=== PATIENT | female | born 1940 | race Caucasian/White ===

== ENCOUNTER 2017-03-07 09:16 | Inpatient (IN) | payer OTHER ==
[2017-03-07] VITALS (8 sets, daily range): BP systolic 107–133; BP diastolic 54–72
[~2017-03-07] VITALS: Ht 157.5 cm; Wt 65.9 kg
[~2017-03-07 09:16] MED LIST: ALEVE220 MG PO; CALCIUM 600 +1 EAC3 PO; CENTRUM SILVER1 EAC4 PO; COUMADIN4 MG PO; FIBER THERAPY0.52 GM PO; HYDROCODON-ACE1 EAC7 PO; IRON325 MG PO; MULTIVITAMIN1 EAC2 PO; NEXIUM20 MG PO; PAXIL10 MG PO; PRAVASTATIN SOD40 MG PO; REFRESH OPTIVE10 ML BOTH EYES; SALINE NASAL SP45 ML BOTH NARES; SIMVASTATIN10 M1 G-TUBE; STOOL SOFTENER100 MG PO; TYLENOL EXTRA500 MG PO; VITAMIN D1000 UNIT PO; ZOCOR40 MG PO
[2017-03-07 10:11] LABS: EOSINOPHIL (%) 0.2 % (0-5); IMMATURE GRANULOCYTE (%) 0.7 % (0.0-0.7); IMMATURE GRANULOCYTE COUNT 0.1 K/uL; INSTRUMENT ABS NEUTROPHIL CT 8.2 K/uL; LYMPHOCYTE COUNT 0.5 K/uL (1.0-2.8); MCH 27.5 PG (29.0-34.0); MCHC 29.4 G/DL (30.0-36.0); MCV 93.4 FL (83-99); MEAN PLAT.VOLUME 10.9 uM^3 (9.5-12.4); MONOCYTE (%) 12.7 % (3-12); MONOCYTE COUNT 1.3 K/uL (0-0.8); NEUTROPHIL (%) 81.5 % (45-76); NEUTROPHIL COUNT 8.2 K/uL (1.8-6.4); PLATELET COUNT 150 K/uL (156-360); RBC DIS.WIDTH-CV 21.9 % (11.8-14.6); RBC DIS.WIDTH-SD 72.6 % (39-53); RED BLOOD COUNT 1.82 M/uL (3.80-5.20); WHITE BLOOD COUNT 10.1 K/uL (4.1-10.2)
[2017-03-07 10:15] LABS: CHLORIDE 100 mEq/L (99-109); POTASSIUM 4.7 mEq/L (3.7-5.4); SODIUM 136 mEq/L (136-147)
[2017-03-07 10:17] LABS: GLUCOSE 114 mg/dL (70-99)
[2017-03-07 10:18] LABS: ANION GAP 10 MEQ/L (2-14)
[2017-03-07 10:19] LABS: TOTAL BILIRUBIN 0.9 mg/dL (0.0-1.0)
[2017-03-07 10:21] LABS: ALKALINE PHOSPHATASE 100 IU/L (3-129)
[2017-03-07 10:22] LABS: UREA NITROGEN (BUN) 35 mg/dL (9-23)
[2017-03-07 10:26] LABS: GFR ESTIMATE (CALCULATED) 26 mL/min/
[2017-03-07 11:30] LABS: INTACT PARATHYROID HORMONE 7 pg/mL (10-69)
[2017-03-07 12:12] LABS: IMM.RETIC FRACTION 33.4 % (3-19); RETIC HGB EQUIVALENT 26.6 (28-36); RETICULOCYTE COUNT 6.3 % (0.5-1.8)
[2017-03-07] MEDS ORDERED: PROMETHAZINE12.5 M1 PO (12:15)
[2017-03-07] MEDS ORDERED: PREMARIN VAGI42.5 GM TP (12:16)
[2017-03-07] MEDS ORDERED: MELOXICAM7.5 MG PO (12:17)
[2017-03-07] MEDS ORDERED: CLONAZEPAM0.5 MG PO (12:17)
[2017-03-07] MEDS ORDERED: TRAMADOL HCL50 MG PO (12:17)
[2017-03-07] MEDS ORDERED: ADVIL200 MG PO (12:18)
[2017-03-07 13:05] LABS: GLOBULINS 2.5 G/DL (2.3-3.5)
[2017-03-07 20:11] LABS: IMMUNOGLOBULIN A 76 MG/DL (40-350); IMMUNOGLOBULIN G 792 MG/DL (650-1600); IMMUNOGLOBULIN M 51 MG/DL (50-300)
[2017-03-08] VITALS (16 sets, daily range): BP systolic 116–139; BP diastolic 54–71
[2017-03-08 03:34] LABS: ADD MIUA? YES; BILIRUBIN NEGATIVE; BLOOD NEGATIVE; COLOR STRAW ((YELLOW)); GLUCOSE (STRIP) NEGATIVE; KETONES NEGATIVE; LEUKOCYTES MODERATE; NITRITE NEGATIVE; PROTEIN (STRIP) NEGATIVE; SPECIFIC GRAVITY 1.006 (1.000-1.030); UROBILINOGEN 0.2 MG/DL (0.2-1.0)
[2017-03-08 03:37] LABS: BACTERIA RARE /HPF; EPITHELIAL CELLS RARE /HPF; MUCUS NONE SEEN /LPF; RED BLOOD CELLS 0-5 /HPF (0-5); UCUL ADDED? YES
[2017-03-08 07:59] LABS: EOSINOPHIL (%) 0 % (0-5); HEMATOCRIT 29.8 % (36.0-46.0); IMMATURE GRANULOCYTE (%) 0.9 % (0.0-0.7); IMMATURE GRANULOCYTE COUNT 0.1 K/uL; INSTRUMENT ABS NEUTROPHIL CT 7.9 K/uL; LYMPHOCYTE COUNT 0.9 K/uL (1.0-2.8); MCH 27.6 PG (29.0-34.0); MCHC 32.9 G/DL (30.0-36.0); MEAN PLAT.VOLUME 10.3 uM^3 (9.5-12.4); MONOCYTE (%) 5.3 % (3-12); MONOCYTE COUNT 0.5 K/uL (0-0.8); NEUTROPHIL (%) 84.2 % (45-76); NEUTROPHIL COUNT 7.9 K/uL (1.8-6.4); PLATELET COUNT 124 K/uL (156-360); RBC DIS.WIDTH-CV 19.7 % (11.8-14.6); RBC DIS.WIDTH-SD 55.8 % (39-53); WHITE BLOOD COUNT 9.4 K/uL (4.1-10.2)
[2017-03-08 08:00] LABS: MCV 83.9 FL (83-99); RED BLOOD COUNT 3.55 M/uL (3.80-5.20)
[2017-03-08 08:09] LABS: INTER. NORMALIZED RATIO 1.2; PROTHROMBIN TIME 13.5 SEC (10.2-12.9)
[2017-03-08 08:11] LABS: PTT 20.4 SEC (25-37)
[2017-03-08 08:26] LABS: ANION GAP 7 MEQ/L (2-14); CHLORIDE 99 MEQ/L (99-109); GFR ESTIMATE (CALCULATED) 29 mL/min/; GLUCOSE 149 mg/dL (70-99); POTASSIUM 4.4 MEQ/L (3.7-5.4); SAMPLE HEMOLYSIS CHECK 0; SAMPLE ICTERIC CHECK 0; SAMPLE LIPEMIA CHECK 0; SODIUM 139 MEQ/L (136-147); UREA NITROGEN (BUN) 35 mg/dL (9-23)
[2017-03-08 09:32] LABS: ANISOCYTOSIS 2+; HYPOCHROMASIA 1+; MACROCYTES 1+; PLAT.SUFFICIENCY DECREASED; POLYCHROMASIA 1+; STOMATOCYTES 1+; TARGET CELLS 1+
[2017-03-08 10:10] LABS: FIBRINOGEN 420 mg/dL (150-450)
[2017-03-08 13:48] LABS: ABS NEUTROPHIL COUNT 8.9; ATYPICAL LYMPHOCYTE 1.8 %; BAND NEUTROPHILS 3.5 % (0-8.0); EOSINOPHIL ABS CT 0; SEG.NEUTROPHILS 91.2 % (46.0-76.0)
[2017-03-08 15:13] LABS: URINE TOTAL PROTEIN 10 MG/DL (0-10)
[2017-03-09 03:54] VITALS: BP 129/65
[2017-03-09 06:08] LABS: EOSINOPHIL (%) 0 % (0-5); HEMATOCRIT 28.7 % (36.0-46.0); IMMATURE GRANULOCYTE (%) 0.5 % (0.0-0.7); IMMATURE GRANULOCYTE COUNT 0.1 K/uL; INSTRUMENT ABS NEUTROPHIL CT 11.8 K/uL; LYMPHOCYTE COUNT 0.8 K/uL (1.0-2.8); MCH 26.6 PG (29.0-34.0); MCHC 31.4 G/DL (30.0-36.0); MCV 84.9 FL (83-99); MEAN PLAT.VOLUME 10.8 uM^3 (9.5-12.4); MONOCYTE (%) 4.2 % (3-12); MONOCYTE COUNT 0.6 K/uL (0-0.8); NEUTROPHIL (%) 89.4 % (45-76); NEUTROPHIL COUNT 11.8 K/uL (1.8-6.4); PLATELET COUNT 130 K/uL (156-360); RBC DIS.WIDTH-CV 20.6 % (11.8-14.6); RBC DIS.WIDTH-SD 59.2 % (39-53); RED BLOOD COUNT 3.38 M/uL (3.80-5.20); WHITE BLOOD COUNT 13.2 K/uL (4.1-10.2)
[2017-03-09 06:53] LABS: ANION GAP 8 MEQ/L (2-14); CHLORIDE 103 MEQ/L (99-109); GFR ESTIMATE (CALCULATED) 36 mL/min/; GLUCOSE 131 mg/dL (70-99); MAGNESIUM 1.8 mg/dl (1.3-2.7); POTASSIUM 3.8 MEQ/L (3.7-5.4); SAMPLE HEMOLYSIS CHECK 0; SAMPLE ICTERIC CHECK 0; SAMPLE LIPEMIA CHECK 0; SODIUM 141 MEQ/L (136-147); UREA NITROGEN (BUN) 46 mg/dL (9-23)
[2017-03-09 07:57] VITALS: BP 142/72
[2017-03-09 12:14] VITALS: BP 165/72
[2017-03-09 16:02] VITALS: BP 152/71
[2017-03-09 20:00] VITALS: BP 128/65
[2017-03-09 23:54] VITALS: BP 130/64
[2017-03-10 04:06] VITALS: BP 133/68
[2017-03-10 07:31] VITALS: BP 131/73
[2017-03-10 08:37] LABS: EOSINOPHIL (%) 0 % (0-5); HEMATOCRIT 29.6 % (36.0-46.0); IMMATURE GRANULOCYTE (%) 0.5 % (0.0-0.7); IMMATURE GRANULOCYTE COUNT 0.1 K/uL; INSTRUMENT ABS NEUTROPHIL CT 10.6 K/uL; LYMPHOCYTE COUNT 0.6 K/uL (1.0-2.8); MCH 27.1 PG (29.0-34.0); MCHC 31.1 G/DL (30.0-36.0); MCV 87.1 FL (83-99); MONOCYTE COUNT 0.5 K/uL (0-0.8); NEUTROPHIL (%) 90.7 % (45-76); NEUTROPHIL COUNT 10.6 K/uL (1.8-6.4); PLATELET COUNT 145 K/uL (156-360); RBC DIS.WIDTH-CV 20.9 % (11.8-14.6); RBC DIS.WIDTH-SD 61.9 % (39-53); WHITE BLOOD COUNT 11.7 K/uL (4.1-10.2)
[2017-03-10 08:48] LABS: ANION GAP 8 MEQ/L (2-14); CHLORIDE 106 MEQ/L (99-109); GFR ESTIMATE (CALCULATED) 39 mL/min/; GLUCOSE 115 mg/dL (70-99); SAMPLE HEMOLYSIS CHECK 0; SAMPLE ICTERIC CHECK 0; SAMPLE LIPEMIA CHECK 0; SODIUM 142 MEQ/L (136-147); UREA NITROGEN (BUN) 44 mg/dL (9-23)
[2017-03-10 12:18] VITALS: BP 141/71
[2017-03-10 15:58] VITALS: BP 142/65
[2017-03-10 19:56] VITALS: BP 139/67
[2017-03-11] VITALS: BP 115/62
[2017-03-11 04:00] VITALS: BP 132/70
[2017-03-11 07:28] LABS: EOSINOPHIL (%) 0 % (0-5); HEMATOCRIT 28.8 % (36.0-46.0); IMMATURE GRANULOCYTE (%) 0.6 % (0.0-0.7); IMMATURE GRANULOCYTE COUNT 0.1 K/uL; INSTRUMENT ABS NEUTROPHIL CT 9.5 K/uL; LYMPHOCYTE COUNT 0.6 K/uL (1.0-2.8); MCH 27.9 PG (29.0-34.0); MCHC 31.6 G/DL (30.0-36.0); MCV 88.3 FL (83-99); MEAN PLAT.VOLUME 10.7 uM^3 (9.5-12.4); MONOCYTE (%) 6.1 % (3-12); MONOCYTE COUNT 0.7 K/uL (0-0.8); NEUTROPHIL (%) 87.8 % (45-76); NEUTROPHIL COUNT 9.5 K/uL (1.8-6.4); PLATELET COUNT 127 K/uL (156-360); RBC DIS.WIDTH-CV 20.9 % (11.8-14.6); RBC DIS.WIDTH-SD 62.9 % (39-53); RED BLOOD COUNT 3.26 M/uL (3.80-5.20); WHITE BLOOD COUNT 10.8 K/uL (4.1-10.2)
[2017-03-11 07:32] VITALS: BP 133/63
[2017-03-11 08:06] LABS: ANION GAP 6 MEQ/L (2-14); CHLORIDE 108 MEQ/L (99-109); GFR ESTIMATE (CALCULATED) 51 mL/min/; GLUCOSE 105 mg/dL (70-99); POTASSIUM 3.9 MEQ/L (3.7-5.4); SAMPLE HEMOLYSIS CHECK 0; SAMPLE ICTERIC CHECK 0; SAMPLE LIPEMIA CHECK 0; SODIUM 142 MEQ/L (136-147); UREA NITROGEN (BUN) 39 mg/dL (9-23)
[2017-03-11] MEDS ORDERED: POLYETHYLENE GL17 GM PO (10:43)
[2017-03-11] MEDS ORDERED: DEXAMETHASONE4 MG PO (10:43)
[2017-03-11 13:22] LABS: ALBUMIN PERCENT 44.9 % (49.3-67.1); ALPHA-1 GLOBULIN 0.61 G/DL (0.15-0.40); ALPHA-1 PERCENT 12.4 % (2.1-5.5); ALPHA-2 GLOBULIN 0.86 G/DL (0.45-0.85); ALPHA-2 PERCENT 17.5 % (6.2-11.6); BETA PERCENT 11.7 % (8.9-15.8); GAMMA PERCENT 13.5 % (8.6-18.6)
== END 2017-03-11 13:25 | disposition home health service (06) | DRG 812 ==
LOC: EME 09:16 → 5SOUTH 11:28 → EDOF 11:28 → ENRESERV 11:34 → 5SOUTH 18:09
PROVIDERS: Internal Medicine; Internal Medicine Hematology & Oncology; Physician Assistant
PROC: 30233N1 Transfusion of Nonautologous Red Blood Cells into Peripheral Vein, Percutaneous Approach (ICD-10-PCS; principal; 2017-03-07)
DX: D62 Acute posthemorrhagic anemia (principal); N17.9 Acute kidney failure, unspecified; C85.90 Non-Hodgkin lymphoma, unspecified, unspecified site; M84.454G Pathological fracture, pelvis, subsequent encounter for fracture with delayed healing; M84.48XG Pathological fracture, other site, subsequent encounter for fracture with delayed healing; D69.6 Thrombocytopenia, unspecified; E78.5 Hyperlipidemia, unspecified; E83.52 Hypercalcemia; E86.0 Dehydration; R16.1 Splenomegaly, not elsewhere classified; I10 Essential (primary) hypertension; K21.9 Gastro-esophageal reflux disease without esophagitis; K59.00 Constipation, unspecified; F41.9 Anxiety disorder, unspecified; R63.0 Anorexia; R63.4 Abnormal weight loss; I95.9 Hypotension, unspecified; Z85.048 Personal history of other malignant neoplasm of rectum, rectosigmoid junction, and anus; Z87.891 Personal history of nicotine dependence; Z85.828 Personal history of other malignant neoplasm of skin; Z88.2 Allergy status to sulfonamides; Z68.26 Body mass index [BMI] 26.0-26.9, adult
CPT/HCPCS: 36415; 70450; 73130; 74176; 80048; 80053; 81003; 82232; 82272; 82310; 82607; 82784; 83615; 83718; 83735; 83883 90; 83970; 84165; 84166; 84439; 84443; 85007; 85025; 85025 91; 85027; 85060; 85378; 85379; 85384; 85610; 85651; 85730; 86140; 86334; 86335; 86850; 86870; 86880; 86900; 86901; 86905; 86920; 87086; 94799; 97530 GP; 99281; 99285; C9113; J0630; J1100; J1940; J7030; J7120; P9016

== ENCOUNTER → 2017-03-27 | Outpatient (CLI) | payer OTHER ==
[~2017-03-27] MED LIST changes: +ADVIL200 MG PO; +CLONAZEPAM0.5 MG PO; +DEXAMETHASONE4 MG PO; +MELOXICAM7.5 MG PO; +PAIN & FEVER500 MG PO; +PAROXETINE HCL20 MG PO; +POLYETHYLENE GL17 GM PO; +PREMARIN VAGI42.5 GM TP; +PROMETHAZINE12.5 M1 PO; +TRAMADOL HCL50 MG PO
[2017-03-29 14:44] LABS: Flow Clinical Information NOT PROVIDED (()); Flow Number of Markers 22 (()); Flow Spec Viability 71 % (())
== END | disposition home or self-care (01) ==
LOC: EDSTATUS 14:00 → RAD 14:00
PROVIDERS: Internal Medicine Hematology & Oncology
PROC: 07B64ZX Excision of Left Axillary Lymphatic, Percutaneous Endoscopic Approach, Diagnostic (ICD-10-PCS; principal; 2017-03-27)
DX: C83.34 Diffuse large B-cell lymphoma, lymph nodes of axilla and upper limb (principal)
CPT/HCPCS: 76942; 88305

== ENCOUNTER 2017-04-10 08:01 | Day surgery (SDC) | payer OTHER ==
[~2017-04-10] VITALS: Ht 158.8 cm; Wt 64.0 kg
== END 2017-04-10 10:12 | disposition home or self-care (01) ==
LOC: CATH 08:01
DX: Z45.2 Encounter for adjustment and management of vascular access device (principal); C85.90 Non-Hodgkin lymphoma, unspecified, unspecified site; I87.8 Other specified disorders of veins
CPT/HCPCS: C1769; C1788; C1894; J0690; J1644; J2250; J3010; S0020

== ENCOUNTER 2017-04-29 08:54 | Inpatient (IN) | payer OTHER ==
[~2017-04-29] VITALS: Ht 157.5 cm; Wt 66.3 kg
[2017-04-29 12:15] VITALS: BP 147/71
[2017-04-29 12:43] LABS: BASOPHIL (%) 0 % (0-1); EOSINOPHIL (%) 0.1 % (0-5); HEMATOCRIT 28.8 % (36.0-46.0); IMMATURE GRANULOCYTE (%) 1.1 % (0.0-0.7); LYMPHOCYTE (%) 9.1 % (15-42); LYMPHOCYTE COUNT 0.9 K/uL (1.0-2.8); MCH 29.7 PG (29.0-34.0); MCHC 31.3 G/DL (30.0-36.0); MONOCYTE (%) 6.6 % (3-12); MONOCYTE COUNT 0.7 K/uL (0-0.8); NEUTROPHIL (%) 83.1 % (45-76); NEUTROPHIL COUNT 8.6 K/uL (1.8-6.4); RBC DIS.WIDTH-CV 18.9 % (11.8-14.6); RBC DIS.WIDTH-SD 65.3 % (39-53); RED BLOOD COUNT 3.03 M/uL (3.80-5.20); WHITE BLOOD COUNT 10.4 K/uL (4.1-10.2)
[2017-04-29 12:51] LABS: PLATELET COUNT 211 K/uL (156-360)
[2017-04-29 13:18] LABS: CHLORIDE 106 MEQ/L (99-109); POTASSIUM 4.3 MEQ/L (3.7-5.4); SODIUM 143 MEQ/L (136-147)
[2017-04-29 13:24] LABS: CREATININE 1.1 MG/DL (0.6-1.3); GFR ESTIMATE (CALCULATED) 51 mL/min/; GLUCOSE 89 mg/dL (70-99); UREA NITROGEN (BUN) 28 mg/dL (9-23)
[2017-04-29 21:13] VITALS: BP 135/64
[2017-04-30] VITALS (12 sets, daily range): BP systolic 116–147; BP diastolic 55–75
[2017-04-30 06:58] LABS: BASOPHIL (%) 0 % (0-1); EOSINOPHIL (%) 0 % (0-5); HEMATOCRIT 25.6 % (36.0-46.0); HEMOGLOBIN 7.7 G/DL (11.9-15.5); IMMATURE GRANULOCYTE (%) 0.7 % (0.0-0.7); LYMPHOCYTE (%) 13.5 % (15-42); MCH 28.4 PG (29.0-34.0); MCHC 30.1 G/DL (30.0-36.0); MCV 94.5 FL (83-99); MONOCYTE (%) 1.5 % (3-12); MONOCYTE COUNT 0.1 K/uL (0-0.8); NEUTROPHIL (%) 84.3 % (45-76); NEUTROPHIL COUNT 6.2 K/uL (1.8-6.4); PLATELET COUNT 175 K/uL (156-360); RBC DIS.WIDTH-CV 18.6 % (11.8-14.6); RBC DIS.WIDTH-SD 64.6 % (39-53); RED BLOOD COUNT 2.71 M/uL (3.80-5.20); WHITE BLOOD COUNT 7.3 K/uL (4.1-10.2)
[2017-04-30 07:24] LABS: CHLORIDE 107 MEQ/L (99-109); CREATININE 1.1 MG/DL (0.6-1.3); GFR ESTIMATE (CALCULATED) 51 mL/min/; GLUCOSE 115 mg/dL (70-99); POTASSIUM 5.2 MEQ/L (3.7-5.4); SODIUM 143 MEQ/L (136-147); UREA NITROGEN (BUN) 27 mg/dL (9-23)
[2017-05-01 06:45] VITALS: BP 140/72
[2017-05-01 06:49] LABS: BASOPHIL (%) 0.1 % (0-1); EOSINOPHIL (%) 0 % (0-5); HEMATOCRIT 32.5 % (36.0-46.0); IMMATURE GRANULOCYTE (%) 0.7 % (0.0-0.7); LYMPHOCYTE (%) 8.4 % (15-42); LYMPHOCYTE COUNT 0.8 K/uL (1.0-2.8); MCH 29.3 PG (29.0-34.0); MCHC 32.6 G/DL (30.0-36.0); MONOCYTE (%) 1.3 % (3-12); MONOCYTE COUNT 0.1 K/uL (0-0.8); NEUTROPHIL (%) 89.5 % (45-76); NEUTROPHIL COUNT 8.5 K/uL (1.8-6.4); PLATELET COUNT 167 K/uL (156-360); RBC DIS.WIDTH-CV 18.6 % (11.8-14.6); RBC DIS.WIDTH-SD 60.8 % (39-53); WHITE BLOOD COUNT 9.4 K/uL (4.1-10.2)
[2017-05-01 06:53] LABS: HEMOGLOBIN 10.6 G/DL (11.9-15.5); MCV 89.8 FL (83-99); RED BLOOD COUNT 3.62 M/uL (3.80-5.20)
[2017-05-01 07:21] LABS: CHLORIDE 106 MEQ/L (99-109); CREATININE 1.1 MG/DL (0.6-1.3); GFR ESTIMATE (CALCULATED) 51 mL/min/; GLUCOSE 116 mg/dL (70-99); SODIUM 142 MEQ/L (136-147); UREA NITROGEN (BUN) 30 mg/dL (9-23)
[2017-05-01 07:26] LABS: POTASSIUM 3.5 MEQ/L (3.7-5.4)
[2017-05-01 11:24] VITALS: BP 146/89
[2017-05-01 15:10] VITALS: BP 159/80
[2017-05-01 23:10] VITALS: BP 130/87
[2017-05-02 06:05] VITALS: BP 130/76
[2017-05-02 06:50] LABS: BASOPHIL (%) 0 % (0-1); EOSINOPHIL (%) 0 % (0-5); HEMATOCRIT 34.7 % (36.0-46.0); HEMOGLOBIN 11.3 G/DL (11.9-15.5); IMMATURE GRANULOCYTE (%) 0.7 % (0.0-0.7); LYMPHOCYTE (%) 6.2 % (15-42); LYMPHOCYTE COUNT 0.6 K/uL (1.0-2.8); MCH 29.6 PG (29.0-34.0); MCHC 32.6 G/DL (30.0-36.0); MCV 90.8 FL (83-99); MONOCYTE (%) 0.5 % (3-12); NEUTROPHIL (%) 92.6 % (45-76); NEUTROPHIL COUNT 8.2 K/uL (1.8-6.4); PLATELET COUNT 174 K/uL (156-360); RBC DIS.WIDTH-CV 18.3 % (11.8-14.6); RBC DIS.WIDTH-SD 60.2 % (39-53); RED BLOOD COUNT 3.82 M/uL (3.80-5.20); WHITE BLOOD COUNT 8.9 K/uL (4.1-10.2)
[2017-05-02 07:03] VITALS: BP 127/67
[2017-05-02 07:13] LABS: CHLORIDE 106 MEQ/L (99-109); CREATININE 1.1 MG/DL (0.6-1.3); GFR ESTIMATE (CALCULATED) 51 mL/min/; GLUCOSE 113 mg/dL (70-99); POTASSIUM 3.4 MEQ/L (3.7-5.4); SODIUM 140 MEQ/L (136-147); UREA NITROGEN (BUN) 29 mg/dL (9-23)
[2017-05-02 11:12] VITALS: BP 145/89
== END 2017-05-02 13:40 | disposition home or self-care (01) | DRG 847 ==
LOC: 5EAST 08:54 → ENRESERV 08:55 → 5EAST 09:27 → ENRESERV 12:16 → 5EAST 05-02 13:40
PROVIDERS: Internal Medicine Hematology & Oncology
PROC: 3E04305 Introduction of Other Antineoplastic into Central Vein, Percutaneous Approach (ICD-10-PCS; principal; 2017-04-29)
PROC: 30233N1 Transfusion of Nonautologous Red Blood Cells into Peripheral Vein, Percutaneous Approach (ICD-10-PCS; 2017-04-30)
DX: Z51.11 Encounter for antineoplastic chemotherapy (principal); C83.34 Diffuse large B-cell lymphoma, lymph nodes of axilla and upper limb; D63.0 Anemia in neoplastic disease; D64.81 Anemia due to antineoplastic chemotherapy; T45.1X5A Adverse effect of antineoplastic and immunosuppressive drugs, initial encounter; R41.82 Altered mental status, unspecified; E83.52 Hypercalcemia; Z85.048 Personal history of other malignant neoplasm of rectum, rectosigmoid junction, and anus
CPT/HCPCS: 80048; 85025; 86850; 86900; 86901; 86920; J1940; J7030; J7040; J7050; J7512; J8540; J9045; J9181; J9208; J9209; P9016; Q0166

== ENCOUNTER 2017-05-26 22:06 | Inpatient (IN) | payer OTHER ==
[2017-05-27 13:45] VITALS: BP 145/64
[2017-05-27 13:56] LABS: HEMATOCRIT 31.4 % (36.0-46.0); HEMOGLOBIN 9.8 G/DL (11.9-15.5); MCH 29.5 PG (29.0-34.0); MCHC 31.2 G/DL (30.0-36.0); MCV 94.6 FL (83-99); RBC DIS.WIDTH-CV 20.7 % (11.8-14.6); RBC DIS.WIDTH-SD 68.7 % (39-53); RED BLOOD COUNT 3.32 M/uL (3.80-5.20); WHITE BLOOD COUNT 19.4 K/uL (4.1-10.2)
[2017-05-27 14:02] LABS: BASOPHIL (%) 0.2 % (0-1); EOSINOPHIL (%) 0 % (0-5); IMMATURE GRANULOCYTE (%) 1.7 % (0.0-0.7); LYMPHOCYTE (%) 8.8 % (15-42); LYMPHOCYTE COUNT 1.7 K/uL (1.0-2.8); MONOCYTE (%) 1.3 % (3-12); MONOCYTE COUNT 0.3 K/uL (0-0.8); NEUTROPHIL COUNT 17.1 K/uL (1.8-6.4)
[2017-05-27 14:11] LABS: PLATELET COUNT 329 K/uL (156-360)
[2017-05-27 14:19] LABS: CHLORIDE 106 MEQ/L (99-109); CREATININE 1.1 MG/DL (0.6-1.3); GFR ESTIMATE (CALCULATED) 51 mL/min/; GLUCOSE 136 mg/dL (70-99); SODIUM 141 MEQ/L (136-147); UREA NITROGEN (BUN) 24 mg/dL (9-23)
[2017-05-27 16:18] VITALS: BP 129/60
[2017-05-27] MEDS ORDERED: PAXIL20 MG PO (17:14)
[2017-05-27] MEDS ORDERED: NEXIUM20 MG PO (17:16)
[2017-05-28] VITALS: BP 136/64
[2017-05-28 06:01] LABS: BASOPHIL (%) 0.1 % (0-1); EOSINOPHIL (%) 0 % (0-5); HEMATOCRIT 26.2 % (36.0-46.0); HEMOGLOBIN 8.3 G/DL (11.9-15.5); IMMATURE GRANULOCYTE (%) 1.4 % (0.0-0.7); LYMPHOCYTE (%) 11.6 % (15-42); LYMPHOCYTE COUNT 1.3 K/uL (1.0-2.8); MCH 30.4 PG (29.0-34.0); MCHC 31.7 G/DL (30.0-36.0); MONOCYTE (%) 1.9 % (3-12); MONOCYTE COUNT 0.2 K/uL (0-0.8); NEUTROPHIL COUNT 9.6 K/uL (1.8-6.4); PLATELET COUNT 236 K/uL (156-360); RBC DIS.WIDTH-CV 20.8 % (11.8-14.6); RBC DIS.WIDTH-SD 70.2 % (39-53); RED BLOOD COUNT 2.73 M/uL (3.80-5.20); WHITE BLOOD COUNT 11.3 K/uL (4.1-10.2)
[2017-05-28 06:31] LABS: CHLORIDE 111 MEQ/L (99-109); CREATININE 1.1 MG/DL (0.6-1.3); GFR ESTIMATE (CALCULATED) 51 mL/min/; GLUCOSE 121 mg/dL (70-99); POTASSIUM 4.5 MEQ/L (3.7-5.4); SODIUM 144 MEQ/L (136-147); UREA NITROGEN (BUN) 24 mg/dL (9-23)
[2017-05-28 07:42] VITALS: BP 128/61
[2017-05-28 16:09] VITALS: BP 114/63
[2017-05-28 16:11] VITALS: BP 135/62
== END 2017-05-28 19:20 | disposition home or self-care (01) | DRG 847 ==
LOC: ENRESERV 22:06 → 5EAST 05-27 10:36
PROVIDERS: Internal Medicine Hematology & Oncology
DX: Z51.11 Encounter for antineoplastic chemotherapy (principal); C83.34 Diffuse large B-cell lymphoma, lymph nodes of axilla and upper limb; Z85.048 Personal history of other malignant neoplasm of rectum, rectosigmoid junction, and anus; Z92.3 Personal history of irradiation; Z87.01 Personal history of pneumonia (recurrent)
CPT/HCPCS: 80048; 85025; J7030; J8540; J9208; J9209; Q0166

== ENCOUNTER 2017-06-16 19:01 | Inpatient (IN) | payer OTHER ==
[~2017-06-16] VITALS: Ht 157.5 cm; Wt 70.5 kg
[~2017-06-16 19:01] MED LIST changes: +PAXIL20 MG PO
[2017-06-17 16:36] VITALS: BP 133/67
[2017-06-17 23:21] VITALS: BP 143/73
[2017-06-18 06:58] LABS: BASOPHIL (%) 0 % (0-1); EOSINOPHIL (%) 0 % (0-5); HEMOGLOBIN 8.5 G/DL (11.9-15.5); IMMATURE GRANULOCYTE (%) 1.6 % (0.0-0.7); LYMPHOCYTE (%) 11.3 % (15-42); LYMPHOCYTE COUNT 0.7 K/uL (1.0-2.8); MCH 30.9 PG (29.0-34.0); MCHC 32.7 G/DL (30.0-36.0); MCV 94.5 FL (83-99); MONOCYTE (%) 3.3 % (3-12); MONOCYTE COUNT 0.2 K/uL (0-0.8); NEUTROPHIL (%) 83.8 % (45-76); NEUTROPHIL COUNT 5.1 K/uL (1.8-6.4); PLATELET COUNT 254 K/uL (156-360); RBC DIS.WIDTH-SD 62.7 % (39-53); RED BLOOD COUNT 2.75 M/uL (3.80-5.20); WHITE BLOOD COUNT 6.1 K/uL (4.1-10.2)
[2017-06-18 07:17] LABS: ALBUMIN 3.3 G/DL (3.2-4.8); ALKALINE PHOSPHATASE 55 IU/L (3-129); ALT (GPT) 55 IU/L (3-49); AST (GOT) 62 IU/L (2-34); CHLORIDE 109 MEQ/L (99-109); CREATININE 1.2 MG/DL (0.6-1.3); GFR ESTIMATE (CALCULATED) 46 mL/min/; GLUCOSE 119 mg/dL (70-99); SODIUM 144 MEQ/L (136-147); TOTAL BILIRUBIN 0.3 MG/DL (0.0-1.0)
[2017-06-18 07:18] LABS: UREA NITROGEN (BUN) 21 mg/dL (9-23)
[2017-06-18 07:44] VITALS: BP 139/72
[2017-06-18 12:13] VITALS: BP 132/71
[2017-06-18 16:06] VITALS: BP 151/80
== END 2017-06-18 18:47 | disposition home or self-care (01) | DRG 847 ==
LOC: ENRESERV 19:01 → CANRESERV 19:14 → ENRESERV 19:14 → CANRESERV 06-17 06:36 → ENRESERV 06-17 06:36 → 5EAST 06-17 13:56
PROVIDERS: Internal Medicine Hematology & Oncology
DX: Z51.11 Encounter for antineoplastic chemotherapy (principal); C83.34 Diffuse large B-cell lymphoma, lymph nodes of axilla and upper limb; Z85.048 Personal history of other malignant neoplasm of rectum, rectosigmoid junction, and anus; Z92.21 Personal history of antineoplastic chemotherapy
CPT/HCPCS: 36415; 80048; 80053; 85025; 85027; J7030; J8540; J9208; J9209; Q0166

== ENCOUNTER 2017-07-14 14:48 | Inpatient (IN) | payer OTHER ==
[~2017-07-14] VITALS: Ht 160 cm; Wt 65.5 kg
[~2017-07-14 14:48] MED LIST changes: -ACYCLOVIR400 MG PO; -COMPAZINE10 MG PO; -FUROSEMIDE20 MG PO; -KLOR-CON 1010 ME1 PO
[2017-07-14 15:27] LABS: HEMATOCRIT 26.8 % (36.0-46.0); MCHC 33.6 G/DL (30.0-36.0); MCV 95.4 FL (83-99); RBC DIS.WIDTH-CV 21.5 % (11.8-14.6); RBC DIS.WIDTH-SD 68.9 % (39-53); RED BLOOD COUNT 2.81 M/uL (3.80-5.20); WHITE BLOOD COUNT 11.7 K/uL (4.1-10.2)
[2017-07-14 15:57] LABS: CHLORIDE 107 MEQ/L (99-109); POTASSIUM 3.7 MEQ/L (3.7-5.4); SODIUM 139 MEQ/L (136-147)
[2017-07-14 16:01] LABS: GFR ESTIMATE (CALCULATED) 26 mL/min/; GLUCOSE 114 mg/dL (70-99); UREA NITROGEN (BUN) 22 mg/dL (9-23)
[2017-07-14 16:17] LABS: PLATELET COUNT 276 K/uL (156-360)
[2017-07-14] MEDS ORDERED: KLOR-CON 1010 ME1 PO (16:28)
[2017-07-14] MEDS ORDERED: FUROSEMIDE20 MG PO (16:28)
[2017-07-14] MEDS ORDERED: ACYCLOVIR400 MG PO (16:29)
[2017-07-14] MEDS ORDERED: COMPAZINE10 MG PO (16:30)
[2017-07-14] MEDS ORDERED: PAROXETINE HCL20 MG PO (16:31)
[2017-07-14] MEDS ORDERED: PRAVASTATIN SOD40 MG PO (16:32)
[2017-07-14 18:06] LABS: TROP-I INTERPRETATION NEGATIVE; TROPONIN-I 0.06 ng/mL (0.0-0.30)
[2017-07-14 18:15] VITALS: BP 183/88
[2017-07-14 19:50] LABS: TROP-I INTERPRETATION NEGATIVE; TROPONIN-I 0.06 ng/mL (0.0-0.30)
[2017-07-14 20:01] VITALS: BP 155/85
[2017-07-14 22:03] LABS: TROP-I INTERPRETATION NEGATIVE; TROPONIN-I 0.06 ng/mL (0.0-0.30)
[2017-07-14 23:25] VITALS: BP 148/86
[2017-07-15 02:30] VITALS: BP 128/70
[2017-07-15 06:00] LABS: IRON 78 MCG/DL (35-150); TRANSFERRIN (TIBC) 218.9 mg/dL (215-380); TRANSFERRIN SATUR. 36 % (20-55)
[2017-07-15 06:04] LABS: TROP-I INTERPRETATION NEGATIVE; TROPONIN-I 0.07 ng/mL (0.0-0.30)
[2017-07-15 08:08] VITALS: BP 148/71
[2017-07-15 09:29] LABS: HEMATOCRIT 25.8 % (36.0-46.0); HEMOGLOBIN 8.6 G/DL (11.9-15.5); MCH 32.2 PG (29.0-34.0); MCHC 33.3 G/DL (30.0-36.0); MCV 96.6 FL (83-99); PLATELET COUNT 257 K/uL (156-360); RBC DIS.WIDTH-CV 22.2 % (11.8-14.6); RBC DIS.WIDTH-SD 70.4 % (39-53); RED BLOOD COUNT 2.67 M/uL (3.80-5.20); WHITE BLOOD COUNT 8.6 K/uL (4.1-10.2)
[2017-07-15 11:11] LABS: FERRITIN > 1500 NG/ML (10-291)
[2017-07-15 11:30] LABS: CHLORIDE 113 MEQ/L (99-109); CREATININE 1.9 MG/DL (0.6-1.3); GFR ESTIMATE (CALCULATED) 27 mL/min/; GLUCOSE 105 mg/dL (70-99); POTASSIUM 3.9 MEQ/L (3.7-5.4); SODIUM 148 MEQ/L (136-147); UREA NITROGEN (BUN) 24 mg/dL (9-23)
[2017-07-15 12:00] VITALS: BP 144/68
[2017-07-15 16:00] VITALS: BP 172/68
[2017-07-15 20:15] VITALS: BP 129/75
[2017-07-15 23:22] VITALS: BP 139/75
[2017-07-16 00:35] VITALS: BP 127/73
[2017-07-16 05:20] LABS: HEMATOCRIT 24.6 % (36.0-46.0); HEMOGLOBIN 8.2 G/DL (11.9-15.5); MCHC 33.3 G/DL (30.0-36.0); MCV 96.1 FL (83-99); PLATELET COUNT 244 K/uL (156-360); RBC DIS.WIDTH-CV 22.4 % (11.8-14.6); RBC DIS.WIDTH-SD 76.4 % (39-53); RED BLOOD COUNT 2.56 M/uL (3.80-5.20); WHITE BLOOD COUNT 6.9 K/uL (4.1-10.2)
[2017-07-16 05:49] LABS: CHLORIDE 107 MEQ/L (99-109); CREATININE 2.2 MG/DL (0.6-1.3); GFR ESTIMATE (CALCULATED) 23 mL/min/; GLUCOSE 96 mg/dL (70-99); POTASSIUM 3.2 MEQ/L (3.7-5.4); SODIUM 142 MEQ/L (136-147); UREA NITROGEN (BUN) 29 mg/dL (9-23)
[2017-07-16 07:11] VITALS: BP 117/64
[2017-07-16 13:54] LABS: APPEARANCE CLEAR ((CLEAR)); BILIRUBIN NEGATIVE; BLOOD SMALL; COLOR STRAW ((YELLOW)); GLUCOSE (STRIP) NEGATIVE; KETONES NEGATIVE; LEUKOCYTES TRACE; NITRITE NEGATIVE; PROTEIN (STRIP) NEGATIVE; SPECIFIC GRAVITY 1.006 (1.000-1.030); UROBILINOGEN 0.2 MG/DL (0.2-1.0)
[2017-07-16 13:59] LABS: BACTERIA 1+ /HPF; EPITHELIAL CELLS RARE /HPF; MUCUS TRACE /LPF; WHITE BLOOD CELLS 0-5 /HPF (0-5)
[2017-07-16 15:35] VITALS: BP 114/62
[2017-07-16 16:41] LABS: UR CREATININE CONCENTRATION 20.9 MG/DL
[2017-07-16 20:40] VITALS: BP 126/70
[2017-07-17] VITALS: BP 110/59
[2017-07-17 05:10] LABS: HEMATOCRIT 23.7 % (36.0-46.0); HEMOGLOBIN 7.9 G/DL (11.9-15.5); MCH 32.1 PG (29.0-34.0); MCHC 33.3 G/DL (30.0-36.0); MCV 96.3 FL (83-99); PLATELET COUNT 228 K/uL (156-360); RBC DIS.WIDTH-CV 22.5 % (11.8-14.6); RBC DIS.WIDTH-SD 76.8 % (39-53); RED BLOOD COUNT 2.46 M/uL (3.80-5.20); WHITE BLOOD COUNT 6.1 K/uL (4.1-10.2)
[2017-07-17 05:21] LABS: BASOPHIL (%) 0.7 % (0-1); EOSINOPHIL (%) 0.5 % (0-5); IMMATURE GRANULOCYTE (%) 2.1 % (0.0-0.7); LYMPHOCYTE (%) 12.4 % (15-42); LYMPHOCYTE COUNT 0.8 K/uL (1.0-2.8); MONOCYTE (%) 15.2 % (3-12); MONOCYTE COUNT 0.9 K/uL (0-0.8); NEUTROPHIL (%) 69.1 % (45-76); NEUTROPHIL COUNT 4.2 K/uL (1.8-6.4)
[2017-07-17 05:35] LABS: CHLORIDE 107 MEQ/L (99-109); CREATININE 2.3 MG/DL (0.6-1.3); GFR ESTIMATE (CALCULATED) 22 mL/min/; GLUCOSE 93 mg/dL (70-99); POTASSIUM 3.3 MEQ/L (3.7-5.4); SODIUM 143 MEQ/L (136-147); UREA NITROGEN (BUN) 33 mg/dL (9-23)
[2017-07-17 05:52] VITALS: BP 118/59
[2017-07-17 07:27] VITALS: BP 122/58
[2017-07-17 11:26] VITALS: BP 142/67
[2017-07-17 15:23] LABS: A/G RATIO 2.3 (1.1-1.8); ALBUMIN 3.7 G/DL (3.4-5.0); GLOBULINS 1.6 G/DL (2.3-3.5); TOTAL PROTEIN 5.3 G/DL (6.4-8.2)
[2017-07-17 19:30] VITALS: BP 113/60
[2017-07-17 23:35] VITALS: BP 98/55
[2017-07-18 04:35] VITALS: BP 108/55
[2017-07-18 05:34] LABS: BASOPHIL (%) 0.5 % (0-1); EOSINOPHIL (%) 0.7 % (0-5); HEMATOCRIT 24.9 % (36.0-46.0); HEMOGLOBIN 8.1 G/DL (11.9-15.5); IMMATURE GRANULOCYTE (%) 1.7 % (0.0-0.7); LYMPHOCYTE (%) 16.5 % (15-42); MCH 32.3 PG (29.0-34.0); MCHC 32.5 G/DL (30.0-36.0); MCV 99.2 FL (83-99); MONOCYTE (%) 14.5 % (3-12); MONOCYTE COUNT 0.9 K/uL (0-0.8); NEUTROPHIL (%) 66.1 % (45-76); NEUTROPHIL COUNT 3.9 K/uL (1.8-6.4); PLATELET COUNT 221 K/uL (156-360); RBC DIS.WIDTH-CV 23.3 % (11.8-14.6); RBC DIS.WIDTH-SD 82.5 % (39-53); RED BLOOD COUNT 2.51 M/uL (3.80-5.20)
[2017-07-18 06:23] LABS: CHLORIDE 110 MEQ/L (99-109); CREATININE 2.3 MG/DL (0.6-1.3); GFR ESTIMATE (CALCULATED) 22 mL/min/; GLUCOSE 92 mg/dL (70-99); IRON 68 MCG/DL (35-150); POTASSIUM 3.7 MEQ/L (3.7-5.4); SODIUM 144 MEQ/L (136-147); TRANSFERRIN (TIBC) 226.7 mg/dL (215-380); TRANSFERRIN SATUR. 30 % (20-55); UREA NITROGEN (BUN) 28 mg/dL (9-23)
[2017-07-18 08:46] VITALS: BP 125/74
[2017-07-18 10:21] LABS: FERRITIN 1626 NG/ML (10-291)
[2017-07-18] MEDS ORDERED: CARVEDILOL6.25 MG PO (12:25)
[2017-07-22 13:42] LABS: ALBUMIN 3.14 G/DL (3.6-4.9); ALPHA-1 GLOBULIN 0.37 G/DL (0.15-0.40); ALPHA-2 GLOBULIN 0.82 G/DL (0.45-0.85); BETA-GLOBULIN 0.57 G/DL (0.65-1.15)
== END 2017-07-18 14:50 | disposition home or self-care (01) | DRG 292 ==
LOC: EME 14:48 → EDOF 16:20 → 4EAST 16:20 → ENRESERV 16:24 → 4EAST 18:08
PROVIDERS: Internal Medicine; Internal Medicine Nephrology; Physician Assistant Medical
DX: I13.0 Hypertensive heart and chronic kidney disease with heart failure and stage 1 through stage 4 chronic kidney disease, or unspecified chronic kidney disease (principal); I50.9 Heart failure, unspecified; Z85.048 Personal history of other malignant neoplasm of rectum, rectosigmoid junction, and anus; C85.90 Non-Hodgkin lymphoma, unspecified, unspecified site; Z92.21 Personal history of antineoplastic chemotherapy; Z87.01 Personal history of pneumonia (recurrent); E83.52 Hypercalcemia; D64.9 Anemia, unspecified; Z90.710 Acquired absence of both cervix and uterus; E78.5 Hyperlipidemia, unspecified; R94.31 Abnormal electrocardiogram [ECG] [EKG]; N17.9 Acute kidney failure, unspecified; Z88.2 Allergy status to sulfonamides; E87.6 Hypokalemia; N28.1 Cyst of kidney, acquired; R09.02 Hypoxemia; N18.3 Chronic kidney disease, stage 3 (moderate); I35.0 Nonrheumatic aortic (valve) stenosis; D63.8 Anemia in other chronic diseases classified elsewhere; Z88.1 Allergy status to other antibiotic agents; Z88.8 Allergy status to other drugs, medicaments and biological substances; E87.1 Hypo-osmolality and hyponatremia; T45.1X5A Adverse effect of antineoplastic and immunosuppressive drugs, initial encounter; Y92.9 Unspecified place or not applicable; K21.9 Gastro-esophageal reflux disease without esophagitis; Z87.891 Personal history of nicotine dependence; Z79.899 Other long term (current) drug therapy
CPT/HCPCS: 71045; 71046; 76770; 78582; 80048; 81003; 82272; 82570; 82607; 82728; 82747 90; 83540; 83880; 83883 90; 84100; 84156; 84165; 84466; 84484; 85025; 85027; 93005; 93306; 99281; 99285; A9540; A9567; J1644; J1940; J7040

== ENCOUNTER → 2017-07-14 | Outpatient (CLI) | payer OTHER ==
[~2017-07-14] MED LIST changes: +ACYCLOVIR400 MG PO; +COMPAZINE10 MG PO; +FUROSEMIDE20 MG PO; +KLOR-CON 1010 ME1 PO; +ZOVIRAX400 MG PO
== END | disposition home or self-care (01) ==
LOC: NUC 12:23
DX: J90 Pleural effusion, not elsewhere classified (principal); R06.82 Tachypnea, not elsewhere classified; R00.0 Tachycardia, unspecified
CPT/HCPCS: 71046; 78582; A9540; A9567